=== PATIENT | female | born 1995 ===

== ENCOUNTER 2024-03-20 19:05 | Inpatient (IN) | payer OTHER ==
[2024-03-20 20:13] LABS: BASO % 0.5 % (0-2.0); EOS % 0.7 % (0-4.5); HEMATOCRIT 35.8 % (32.4-45.2); HEMOGLOBIN 12.4 GM/dL (10.7-15.3); LYMPH % 18.9 % (8-40); MCH 33.6 pg (25.7-33.7); MCHC 34.7 g/dl (32.0-36.0); MEAN CELL VOLUME 96.9 fl (80-96); MEAN PLT VOLUME 10.1 fl (7.5-11.1); MONO % 6.7 % (3.8-10.2); NEUT % 73.2 % (42.8-82.8); PLATELET COUNT 201 10^3/uL (134-434); RBC 3.69 M/mm3 (3.60-5.2); RDW 13.4 % (11.6-15.6); WHITE BLOOD COUNT 10.4 K/mm3 (4.0-10.0)
[2024-03-20 20:15] VITALS: BMI 28.0
[2024-03-20 20:23] LABS: INR 0.91 (0.83-1.09); PROTHROMBIN TIME (PATIENT) 10.5 SEC (9.7-13.0)
[2024-03-20] MEDS: LACTATED RINGERS SOLUTION 1,000 ML/1,000 ML INFUS.BAG IV SCH (20:30)
[2024-03-20 20:39] LABS: POTASSIUM 3.8 mmol/L (3.5-5.1)
[2024-03-20 20:41] LABS: CALCIUM 8.8 mg/dL (8.5-10.1)
[2024-03-20 20:42] LABS: ALBUMIN 2.8 g/dl (3.4-5.0); BLOOD UREA NITROGEN 8.1 mg/dL (7-18)
[2024-03-20 20:45] LABS: CREATININE 0.7 mg/dL (0.55-1.3)
[2024-03-20 20:46] LABS: BILIRUBIN,TOTAL 0.3 mg/dL (0.2-1); TOT PROT 6.3 g/dl (6.4-8.2)
[2024-03-20] MEDS: MISOPROSTOL 25 MCG TABLET (COMPOUNDED BY PHARMACY) PV SCH (21:30)
[2024-03-21] MEDS: OXYTOCIN 30 UNITS in 0.9% NS 30 UNIT/500 ML INFUS.BAG IVPB SCH (10:15)
[2024-03-21] MEDS ORDERED: morphine SULFATE 4 MG/ML VIAL ONE (13:53)
[2024-03-21] MEDS: morphine SULFATE 4 MG/ML VIAL IVPB ONE (14:05)
[2024-03-21] MEDS: SODIUM CHLORIDE 1,000 ML IV STA (16:40)
[2024-03-21] MEDS ORDERED: FENTANYL/BUPIVACAINE/NS/PF - PCEA - 50 ML DISP.SYRIN EP ONE (16:44)
[2024-03-21] MEDS: FENTANYL/BUPIVACAINE/NS/PF - PCEA - 50 ML DISP.SYRIN EP SCH (17:10)
[2024-03-21] MEDS ORDERED: NALOXONE HCL 0.4 MG/ML VIAL IVPUSH PRN (17:20)
[2024-03-21] MEDS ORDERED: OXYTOCIN 20 UNITS in 0.9% NS 20 UNIT/1,000 ML INFUS.BAG IV ONE (20:37)
[2024-03-21] MEDS: OXYTOCIN 20 UNITS in 0.9% NS 20 UNIT/1,000 ML INFUS.BAG IV SCH (21:49)
[2024-03-21 22:12] LABS: CORD BASE EXCESS -6.5 mmol/L (0-2); CORD HCO3 20.2 mmHg (20-29); CORD PCO2 44.2 mmHg (30-78); CORD pH 7.278 (7.14-7.44)
[2024-03-21 22:18] LABS: CORD HCO3 19.8 mmHg (20-29); CORD pH 7.123 (7.14-7.44)
[2024-03-21] MEDS ORDERED: WITCH HAZEL 50% (TUCKS) 40 PAD/JAR PAD TP PRN (22:38)
[2024-03-21] MEDS ORDERED: BENZOCAINE 28 GM HEMORRHOIDAL OINTMENT TP PRN (22:38)
[2024-03-21] MEDS ORDERED: ACETAMINOPHEN 325 MG TABLET (FP) PO PRN (22:38)
[2024-03-22] MEDS: IBUPROFEN 600 MG TABLET (FP) PO PRN (00:51)
[2024-03-22 08:36] LABS: BASO % 0.1 % (0-2.0); HEMATOCRIT 33.2 % (32.4-45.2); HEMOGLOBIN 11.3 GM/dL (10.7-15.3); MCH 33.2 pg (25.7-33.7); MCHC 34.2 g/dl (32.0-36.0); MEAN CELL VOLUME 97.2 fl (80-96); MEAN PLT VOLUME 10.6 fl (7.5-11.1); MONO % 6.6 % (3.8-10.2); NEUT % 84.3 % (42.8-82.8); PLATELET COUNT 160 10^3/uL (134-434); RBC 3.41 M/mm3 (3.60-5.2); RDW 13.7 % (11.6-15.6); WHITE BLOOD COUNT 14.4 K/mm3 (4.0-10.0)
[2024-03-22 22:18] VITALS: PULSE 80
[2024-03-23] MEDS: LEVOTHYROXINE NA 75 MCG TABLET (FP) PO SCH (06:36)
[2024-03-23 11:06] VITALS: BP 98/67; RESP 17; TEMP 97.7
== END 2024-03-23 12:50 | disposition home or self-care (01) | DRG 560 ==
LOC: JLDR 19:05 → J3W 03-22 00:12
PROVIDERS: ADMIT Obstetrics & Gynecology Maternal & Fetal Medicine; ATTEND Obstetrics & Gynecology Maternal & Fetal Medicine
PROC: 10E0XZZ Delivery of Products of Conception, External Approach (ICD-10-PCS; principal; 2024-03-21)
PROC: 0KQM0ZZ Repair Perineum Muscle, Open Approach (ICD-10-PCS; 2024-03-21)
DX: O99.284 Endocrine, nutritional and metabolic diseases complicating childbirth (principal); O70.1 Second degree perineal laceration during delivery; Z3A.39 39 weeks gestation of pregnancy; Z37.0 Single live birth
CPT/HCPCS: 36415; 36600; 59409; 80053; 82803; 84443; 85025; 85610; 85730; 86850; 86900; 86901; 88307-TC